=== PATIENT | male | born 1980 | race Caucasian/White ===

== ENCOUNTER 2021-12-05 19:25 | Emergency (ER) | payer SELFPAY ==
[~2021-12-05] VITALS: Ht 177.8 cm; Wt 74.8 kg
--- NOTE | 2021-12-05 19:40 | NUR ---
patient walked into ER c/o intermitent right abdominal pain x20 days and rectal bleeding this morning. Patient is A/Ox4, no SOB, no distress noted
[2021-12-05 20:18] LABS: CREATININE 1.1 mg/dL (0.6-1.3); MEAN CORPUSCULAR HEMOGLOBIN 30.5 uug (23.8-33.4); MEAN CORPUSCULAR VOLUME 87.4 fL (73.0-96.2); PLATELET COUNT (AUTO) 270 K/uL (152-348); POTASSIUM 3.5 mmol/L (3.5-5.1)
[2021-12-05 20:24] LABS: BILIRUBIN,DIRECT 0.1 mg/dL (0.0-0.2); BILIRUBIN,TOTAL 0.3 mg/dL (0.2-1.0); TOTAL PROTEIN, SERUM 7.2 g/dL (6.4-8.2)
[2021-12-05 21:24] LABS: *OCCULT BLOOD STOOL NEGATIVE (NEGATIVE)
[2021-12-05] MEDS ORDERED: FAMO-132 PO (22:10)
--- NOTE | 2021-12-05 22:14 | NUR ---
Patient discharged to home in stable condition. Written and verbal after care instructions given. Patient verbalizes understanding of instructions. Stressed follow up or return to ER for worsening s/s. pt ambulated with steady gait. denies pain. no SOB. no chest pain. AOx4.
[2021-12-05 22:15] VITALS: BP 120/63
== END 2021-12-05 22:15 | disposition home or self-care (01) ==
LOC: ER 19:27
DX: K62.5 Hemorrhage of anus and rectum (principal); R10.13 Epigastric pain; R10.11 Right upper quadrant pain
CPT/HCPCS: 36415; 83690; 85025; A4663

== ENCOUNTER 2021-12-18 17:18 | Emergency (ER) | payer OTHER ==
[~2021-12-18] VITALS: Ht 177.8 cm; Wt 74.8 kg
[~2021-12-18 17:18] MED LIST: FAMO-132 PO
[2021-12-18] MEDS ORDERED: NITROGLYCERIN OINT 1 GM PACKET TP ONE ×2 (18:45→18:47)
[2021-12-18] MEDS ORDERED: MAG HYDROX/AL HYDROX/SIMETH 30 ML LIQUID UDC PO ONE (18:45)
[2021-12-18] MEDS ORDERED: LIDOCAINE VISCUS 2% 15 ML UDC MM ONE (18:45)
[2021-12-18] MEDS ORDERED: DICYCLOMINE HCL LIQ 10 MG/5 ML UDC PO ONE (18:45)
[2021-12-18] MEDS ORDERED: LIDOCAINE VISCUS 2% 15 ML UDC ONE (18:46)
[2021-12-18] MEDS ORDERED: MAG HYDROX/AL HYDROX/SIMETH 30 ML LIQUID UDC ONE (18:46)
[2021-12-18] MEDS ORDERED: DICYCLOMINE HCL LIQ 10 MG/5 ML UDC ONE (18:50)
[2021-12-18 18:57] LABS: HEMATOCRIT 44.6 % (36.7-47.1); MEAN CORPUSCULAR HEMOGLOBIN 31.2 uug (23.8-33.4); MEAN CORPUSCULAR VOLUME 88.2 fL (73.0-96.2); PLATELET COUNT (AUTO) 309 K/uL (152-348)
--- NOTE | 2021-12-18 19:00 | NUR ---
patient came to ER c/o epigastric pain, radiating to the right shoulder for 2 weeks. Patient is A/Ox4, no n/v, no SOB, no distress noted. Patient is accompanied by S.O.
[2021-12-18 19:03] LABS: CARBON DIOXIDE 30 mmol/L (21-32); CHLORIDE 103 mmol/L (98-107); GLUCOSE 117 mg/dL (74-106); POTASSIUM 4.1 mmol/L (3.5-5.1); UREA NITROGEN, BLOOD 15 mg/dL (7-18)
[2021-12-18 19:16] LABS: ALANINE AMINOTRANSFERASE 44 U/L (16-63); ALKALINE PHOSPHATASE 81 U/L (50-136); ASPARTATE AMINOTRANSFERASE 23 U/L (15-37); BILIRUBIN,DIRECT 0.1 mg/dL (0.0-0.2); BILIRUBIN,TOTAL 0.4 mg/dL (0.2-1.0); TOTAL PROTEIN, SERUM 7.2 g/dL (6.4-8.2)
--- NOTE | 2021-12-18 19:50 | NUR ---
Patient discharged to home in stable condition. Written and verbal after care instructions given. Patient verbalizes understanding of instructions. Stressed follow up or return to ER for worsening s/s. Patient is A/Ox4, no SOB, not in distress. Patient is accompanied by S.O.
[2021-12-18 19:51] VITALS: BP 117/77
== END 2021-12-18 19:40 | disposition home or self-care (01) ==
LOC: ER 17:26
DX: R10.13 Epigastric pain (principal); R07.9 Chest pain, unspecified; M54.9 Dorsalgia, unspecified; K21.9 Gastro-esophageal reflux disease without esophagitis
CPT/HCPCS: 36415; 71045; 83690; 84484; 85025; 85730; 93005; A4663

== ENCOUNTER 2022-05-28 16:12 | Emergency (ER) | payer OTHER ==
[~2022-05-28] VITALS: Ht 162.6 cm; Wt 72.6 kg
[2022-05-28 16:44] LABS: HEMATOCRIT 43.6 % (36.7-47.1); MEAN CORPUSCULAR HEMOGLOBIN 30.7 uug (23.8-33.4); MEAN CORPUSCULAR VOLUME 88.4 fL (73.0-96.2); PLATELET COUNT (AUTO) 295 K/uL (152-348)
[2022-05-28 16:45] LABS: CARBON DIOXIDE 31 mmol/L (21-32); CHLORIDE 105 mmol/L (98-107); CREATININE 1.1 mg/dL (0.6-1.3); GLUCOSE 93 mg/dL (74-106); POTASSIUM 4.4 mmol/L (3.5-5.1); UREA NITROGEN, BLOOD 17 mg/dL (7-18)
[2022-05-28] MEDS ORDERED: IBUP-1955 PO (17:33)
[2022-05-28 18:36] VITALS: BP 118/68
--- NOTE | 2022-05-28 18:37 | NUR ---
Patient is discharged to home. VSS, afebrile. No s/s of discomfort or distress. Provided and explained discharge/ follow up instructions. Verbalized understanding. No IV access. All belongings sent with the patinet.
== END 2022-05-28 18:40 | disposition home or self-care (01) ==
LOC: ER 16:12
DX: R07.9 Chest pain, unspecified (principal); K21.9 Gastro-esophageal reflux disease without esophagitis
CPT/HCPCS: 36415; 71045; 84484; 85025; 93005; A4663

== ENCOUNTER 2024-11-24 13:27 | Emergency (ER) | payer OTHER ==
[~2024-11-24] VITALS: Ht 175.3 cm; Wt 76.2 kg
[~2024-11-24 13:27] MED LIST changes: +IBUP-1955 PO
[2024-11-24] MEDS ORDERED: PSEU-249 PO (14:35)
[2024-11-24] MEDS ORDERED: OXYM15MI4 NS (14:35)
[2024-11-24] MEDS ORDERED: AMOX-430 PO (14:35)
[2024-11-24] MEDS ORDERED: PRED20TA PO (14:35)
[2024-11-24] MEDS ORDERED: FLUT16SP16 BNOSTRILS (14:35)
[2024-11-24 14:51] VITALS: BP 124/80; TEMP 97.9; O2SAT 100
== END 2024-11-24 14:51 | disposition home or self-care (01) ==
LOC: ER 13:27
DX: J32.9 Chronic sinusitis, unspecified (principal); R07.89 Other chest pain; K21.9 Gastro-esophageal reflux disease without esophagitis; Z79.52 Long term (current) use of systemic steroids; Z90.89 Acquired absence of other organs; Z98.890 Other specified postprocedural states
CPT/HCPCS: A4606; A4663